=== PATIENT | male | born 1965 | race Caucasian/White ===

== ENCOUNTER → 2017-03-25 | Outpatient (CLI) | payer OTHER ==
--- NOTE | 2017-03-26 08:14 | PCVCIMAG ---
EXAM: BILATERAL SUPERFICIAL VENOUS DUPLEX INDICATION: Leg pain and swelling. FINDINGS: Right leg: No thrombus in the common femoral, main femoral, or popliteal veins. These veins are compressible. Right Great Saphenous Vein: At the saphenofemoral junction the diameter is 5.6 mm, at the knee it is 6.3 mm, and in the calf it is 10.6 mm. There is significant venous insufficiency/reflux throughout. Venous insufficiency/reflux duration is 0.9 seconds. Right Small Saphenous Vein: At the saphenopopliteal junction the diameter is 6.6 mm, and in the calf it is 7.9 mm. There is significant venous insufficiency/reflux throughout. Venous insufficiency/reflux duration is 4.4 seconds. There is not a cranial extension present. Left leg: No thrombus in the common femoral, main femoral, or popliteal veins. These veins are compressible. Left Great Saphenous Vein: At the saphenofemoral junction the diameter is 6.0 mm, in the mid thigh it is not well seen, and in the calf it is 6.1 mm. There is significant venous insufficiency/reflux throughout. Venous insufficiency/reflux duration is 3.6 seconds. Left Small Saphenous Vein: At the saphenopopliteal junction the diameter is 5.6 mm, and in the calf it is 7.3 mm. There is significant venous insufficiency/reflux throughout. Venous insufficiency/reflux duration is 3.6 seconds. There is not a cranial extension present. IMPRESSION: Right Great Saphenous Vein: Significant venous insufficiency/reflux is present as noted above. Right Small Saphenous Vein: Significant venous insufficiency/reflux is present as noted above. Left Great Saphenous Vein: Significant venous insufficiency/reflux is present as noted above. Left Small Saphenous Vein: Significant venous insufficiency/reflux is present as noted above. LOC:[id number]
== END | disposition home or self-care (01) ==
LOC: PCVCIMAG 13:12
PROVIDERS: ATTEND Nuclear Medicine Nuclear Cardiology
DX: I87.2 Venous insufficiency (chronic) (peripheral) (principal); I87.393 Chronic venous hypertension (idiopathic) with other complications of bilateral lower extremity; Z87.891 Personal history of nicotine dependence
CPT/HCPCS: 93970; G0463

== ENCOUNTER → 2017-06-13 | Outpatient (CLI) | payer OTHER ==
[~2017-06-13] MED LIST: ARNICA TOPICAL GEL 1.5OZ TUBE. TP ONE; CEPHALEXIN 250 MG CAPSULE. ONE; DIAZEPAM 10 MG TABLET. ONE; IV NORMAL SALINE 1000ML BAG 1,000 ML ONE; LIDOCAINE 1%/EPI 1:100,000 20 ML VIAL. ONE; SODIUM BICARBONATE 50 MEQ/50 ML VIAL. ONE
--- NOTE | 2017-06-13 09:16 | PCVCINTER ---
EXAM: 1. RIGHT GREAT SAPHENOUS VEIN ENDOVENOUS LASER ABLATION 2. RIGHT SMALL SAPHENOUS VEIN ENDOVENOUS LASER ABLATION INDICATION: Chronic Venous Insufficiency Class 4a. Leg pain and swelling. Failed conservative therapy including medical grade compression stockings for at least 3 months. Venous hypertension chronic. Prior bleeding varicosity right foot. PROCEDURE: Procedure and risks of endovenous laser ablation including thrombosis, vascular injury, nerve injury, skin necrosis, and infection were discussed with the patient and consent obtained. The right leg was prepped and draped in the normal sterile fashion. Using ultrasound guidance access into the right small saphenous vein was obtained and a 5F 30 cm long catheter was advanced to 2 cm below the saphenopopliteal junction. The laser fiber was advanced through the catheter to its tip and the catheter partially retracted. Abundant tumescent anesthesia using a dilute lidocaine solution was given in the perivenous tissues throughout the length of the laser fiber. Ultrasound confirmed good position of the distal tip of the laser fiber as well as direct transcutaneous visualization. The 1470 Dornier laser was set to 5 ching and a slow continuous pull-back technique employed to deliver 962 Joules throughout the treated segment. Catheter and fiber were removed and hemostasis obtained. Using ultrasound guidance access into the right great saphenous vein was obtained and a 5F 15 cm long catheter was placed. The laser fiber was advanced through the catheter to its tip and the catheter partially retracted. Abundant tumescent anesthesia using a dilute lidocaine solution was given in the perivenous tissues throughout the length of the laser fiber. Ultrasound confirmed good position of the distal tip of the laser fiber as well as direct transcutaneous visualization. The 1470 Dornier laser was set to 6 ching and a slow continuous pull-back technique employed to deliver 625 Joules throughout the treated segment. Catheter and fiber were removed and hemostasis obtained. No immediate complications. The leg was dressed and wrapped appropriately and reinforced with a compression stocking. IMPRESSION: Satisfactory endovenous laser ablation of the right great saphenous vein and right small saphenous vein. LOC:[id number]
== END | disposition home or self-care (01) ==
LOC: PCVCINTER 07:11
PROVIDERS: ATTEND Nuclear Medicine Nuclear Cardiology
DX: I87.2 Venous insufficiency (chronic) (peripheral) (principal); I87.301 Chronic venous hypertension (idiopathic) without complications of right lower extremity
CPT/HCPCS: 36478; 36479; C1751; C1769; C1894; J3490; J7030

== ENCOUNTER → 2017-07-14 | Outpatient (CLI) | payer OTHER ==
--- NOTE | 2017-07-14 15:53 | PCVCIMAG ---
EXAM: RIGHT SUPERFICIAL VENOUS DUPLEX INDICATION: Leg pain and swelling. FINDINGS: Right leg: No thrombus in the common femoral, main femoral, or popliteal veins. These veins are compressible. Right Great Saphenous Vein: Occlusion throughout the length of the right great saphenous vein consistent with satisfactory prior ablation procedure. Right Small Saphenous Vein: Occlusion throughout the length of the right small saphenous vein consistent with satisfactory prior ablation procedure. IMPRESSION: Satisfactory post ablation change in the right great saphenous vein. Satisfactory post ablation change in the right small saphenous vein. LOC:[id number]
== END | disposition home or self-care (01) ==
LOC: PCVCIMAG 14:53
PROVIDERS: ATTEND Nuclear Medicine Nuclear Cardiology
DX: I87.2 Venous insufficiency (chronic) (peripheral) (principal); I87.303 Chronic venous hypertension (idiopathic) without complications of bilateral lower extremity; M79.604 Pain in right leg; M79.89 Other specified soft tissue disorders; Z87.891 Personal history of nicotine dependence
CPT/HCPCS: 93971; G0463